=== PATIENT | female | born 1995 | race Two or more races ===

== ENCOUNTER 2020-03-13 23:31 | Emergency (ER) | payer MEDICAID, OTHER ==
[~2020-03-13] VITALS: Ht 157.5 cm; Wt 77.0 kg
[2020-03-13] MEDS ORDERED: ONDANSETRON 2MG/ML, 2ML ONE (23:38)
[2020-03-13] MEDS ORDERED: MORPHINE SULFATE 4 MG/ML, 1ML ONE (23:39)
--- NOTE | 2020-03-13 23:53 | NUR ---
Note [email or web address] in EDM - 03/13/20 at 2355 by IVETT PT WITH LEFT LOWER BACK PAIN FOR A FEW DAYS. VAGINAL BLEEDING THAT STARTED LAST NIGHT AFTER SHE PULLED OUT HER IUD AT HOME. PT NOW WITH PAIN, NAUSEA AND VOMITTING. ZOFRAN GIVEN BY EMS HANDHOLE MACHINE OPERATOR WITH NO EFFECT. PT MEDICATED WITH ZOFRAN A SECOND TIME WITH MORPHINE AND PT REPORTS FEELING "CALM" PT ATTACHED TO SPO2 AND BP MONITOR. RESTING ON [facility].
--- NOTE | 2020-03-13 23:57 | NUR ---
PT WITH LEFT LOWER BACK PAIN FOR A FEW DAYS. VAGINAL BLEEDING THAT STARTED LAST NIGHT AFTER SHE PULLED OUT HER IUD AT HOME. PT NOW WITH PAIN, NAUSEA AND VOMITTING. ZOFRAN GIVEN BY EMS PITTING MACHINE OPERATOR WITH NO EFFECT. PT MEDICATED WITH ZOFRAN A SECOND TIME WITH MORPHINE AND PT REPORTS FEELING "CALM" PT ATTACHED TO SPO2 AND BP MONITOR. RESTING ON GURNEY.
[2020-03-14] MEDS ORDERED: ONDANSETRON 2MG/ML, 2ML IVPush ONE
[2020-03-14] MEDS ORDERED: MORPHINE SULFATE 4 MG/ML, 1ML IVPush PRN
[2020-03-14 00:07] LABS: BASOPHILS % (AUTO) 0 % (0-1); EOSINOPHILS % (AUTO) 0 % (1-7); LYMPHOCYTES % (AUTO) 9 % (22-44); MEAN CORPUSCULAR HEMOGLOBIN 28.4 pg (27.0-34.8); MEAN CORPUSCULAR HGB CONC 32.5 g/dL (32.4-35.8); MEAN PLATELET VOLUME 9.6 fL (7.4-10.4); MONOCYTES % (AUTO) 5 % (2-9); NEUTROPHILS % (AUTO) 85 % (42-75); PLATELET COUNT 206 x10^3/uL (130-400); RED CELL DISTRIBUTION WIDTH 13.7 % (9.6-15.2)
[2020-03-14 00:08] LABS: MD NO
--- NOTE | 2020-03-14 00:12 | NUR ---
PT TO [facility] AT THIS TIME
[2020-03-14 00:19] LABS: ALBUMIN 3.9 g/dL (3.4-5.0); ANION GAP 7 mmol/L (5-15); CALCIUM 8.7 mg/dL (8.5-10.1); CHLORIDE 109 mmol/L (98-107)
[2020-03-14 00:25] LABS: CREATININE 0.94 mg/dL (0.55-1.02)
--- NOTE | 2020-03-14 00:35 | NUR ---
PT STILL IN US
[2020-03-14 00:50] VITALS: BP 142/97
--- NOTE | 2020-03-14 00:50 | NUR ---
PT BACK FROM [place] AND REQUESTING MORE PAIN AND NAUSEA MEDS
[2020-03-14 01:09] LABS: MICROSCOPIC INDICATED
== END 2020-03-14 01:56 | disposition home or self-care (01) ==
LOC: ED 23:59
DX: N93.9 Abnormal uterine and vaginal bleeding, unspecified (principal); R10.2 Pelvic and perineal pain; R11.2 Nausea with vomiting, unspecified; M54.5 Low back pain; R10.32 Left lower quadrant pain
CPT/HCPCS: 36415; 76830; 80048; 81001; 82040; 84703; 85025; 86850; 86900; 87086; 96374; 96375; 99284; J2270; J2405